=== PATIENT | female | born 1970 | race Caucasian/White ===

== ENCOUNTER 2017-01-26 12:19 | Emergency (ER) | payer MEDICAID ==
[~2017-01-26] VITALS: Ht 162.6 cm; Wt 74.8 kg
[2017-01-26 13:04] VITALS: BP 120/82
== END 2017-01-26 13:38 | disposition home or self-care (01) ==
LOC: ER 12:27
DX: L23.9 Allergic contact dermatitis, unspecified cause (principal)

== ENCOUNTER 2017-09-06 11:05 | Emergency (ER) | payer MEDICAID ==
[~2017-09-06] VITALS: Ht 154.9 cm; Wt 74.8 kg
[2017-09-06 11:17] VITALS: BP 132/76
[2017-09-06] MEDS ORDERED: KETOROLAC TROMETH 60MG/2ML VIAL IM ONE (11:45)
== END 2017-09-06 12:08 | disposition home or self-care (01) ==
LOC: ER 11:05
DX: M23.92 Unspecified internal derangement of left knee (principal); G89.29 Other chronic pain; M25.562 Pain in left knee; E66.9 Obesity, unspecified; Z68.31 Body mass index [BMI] 31.0-31.9, adult
CPT/HCPCS: 73562; 96372; 99284; J1885

== ENCOUNTER 2018-09-30 13:00 | Emergency (ER) | payer MEDICAID ==
[~2018-09-30] VITALS: Ht 162.6 cm; Wt 88.5 kg
[2018-09-30 13:12] VITALS: BP 119/97
[2018-09-30] MEDS ORDERED: ONDANSETRON HCL 4 MG/2 ML VIAL IV ONE (14:00)
[2018-09-30] MEDS ORDERED: MORPHINE SULFATE 4 MG/ML SYR/VIAL IV ONE (14:00)
[2018-09-30 14:29] LABS: Basophils # (auto) 0.1 uL; Basophils % (auto) 0.9 % (0.0-2.0); Eosinophils # (auto) 0.1 uL; Eosinophils % (auto) 1.3 % (0.0-7.0); Hematocrit 41.5 % (36.0-46.0); Hemoglobin 14.1 g/dL (12.2-16.2); Lymphocytes % (auto) 16.7 % (10.0-50.0); Mean Corpuscular Hemoglobin 30.3 pg (28.0-32.0); Mean Corpuscular Hgb Conc. 34.1 g/dL (32.0-36.0); Mean Corpuscular Volume 88.8 fL (80.0-100.0); Monocytes # (auto) 0.7 uL; Neutrophils # (auto) 8.9 uL; Neutrophils % (auto) 75.1 % (37.0-80.0); Platelet Count (auto) 351 10^3/uL (140-450); Red Blood Cells 4.67 10^6/uL (4.0-5.20); Red Cell Distribution Width 14.8 % (11.8-14.3); White Blood Cell 11.8 10^3/uL (4.4-10.8)
[2018-09-30 14:47] LABS: Albumin 2.7 g/dL (3.4-5.0); Anion Gap 10 (5-15); Blood Urea Nitrogen 14 mg/dL (7-18); Calcium 7.2 mg/dL (8.5-10.1); Carbon Dioxide 21 mmol/L (21-32); Chloride 110 mmol/L (98-107); Potassium 3.8 mmol/L (3.5-5.1); Sodium 141 mmol/L (136-145)
[2018-09-30 14:52] LABS: Alanine Aminotransferase 22 U/L (13-56); Alkaline Phosphatase 84 U/L (45-117); Aspartate Aminotransferase 15 U/L (15-37); BUN/Creatinine Ratio 16.3; Bilirubin, Total 0.4 mg/dL (0.2-1.0); GFR African American 90 mL/min; GFR Non-African American 75 mL/min; Glucose 119 mg/dL (74-106); Total Protein 7.4 g/dL (6.4-8.2)
== END 2018-09-30 15:22 | disposition home or self-care (01) ==
LOC: ER 13:02
DX: R51 Headache (principal); F41.9 Anxiety disorder, unspecified; Z90.49 Acquired absence of other specified parts of digestive tract; Z98.51 Tubal ligation status
CPT/HCPCS: 36415; 70450; 71046; 80053; 83880; 84484; 85025; 93005